=== PATIENT | male | born 1990 | race Caucasian/White ===

== ENCOUNTER 2019-12-15 13:00 | Outpatient (CLI) | payer OTHER, SELFPAY ==
--- NOTE | ~2019-12-15 | CT_ITS ---
EXAMINATION: CT brain wo con EXAM DATE: 12/15/2019 13:21 INDICATION: Ataxic paraplegia. TECHNIQUE: Spiral CT of the head was performed without contrast. Axial, coronal and sagittal images were reviewed. The dose-length product (DLP) for this examination was 529.67 mGy-cm. The exposure w as tailored according to patient size, and iterative reconstruction (ASIR) was used as additional dos e reduction technique. Comparison is made to prior examination from 08/15/2010. FINDINGS: There is no acute intraparenchymal hemorrhage. No evidence of intraparenchymal brain mass lesion. No evidence of acute infarction. There is no mass effect or midline shift. The ventricles are normal in size. There are no extra-axial collections. There are no acute calvarial fractures. T he orbits are unremarkable. Soft tissue is unremarkable. The visualized sinuses and mastoid air nilson ls are well aerated. IMPRESSION: 1. Unremarkable head CT examination. Reviewed, dictated and finalized at location A.
== END 2019-12-15 13:01 | disposition home or self-care (01) ==
LOC: ANHIMG 13:06
DX: E53.8 Deficiency of other specified B group vitamins (principal); G32.0 Subacute combined degeneration of spinal cord in diseases classified elsewhere
CPT/HCPCS: 70450

== ENCOUNTER 2020-04-09 13:28 | Outpatient (CLI) | payer OTHER, SELFPAY ==
--- NOTE | 2020-04-09 13:46 | ECHO_ITS ---
Patient Info Name: Scooter Michaels Age: 29 years : 1990 Gender: Male Ht: 70 in Wt: 230 lbs BSA: 2.30 m2 HR: 103 bpm BP: 140 / 97 mmHg Technical Quality: Good Exam Date: 04/09/2020 1:49 PM Exam Location: [facility] Patient Status: Outpatient Admit Date: 04/09/2020 Staff Ordering Physician: Barbara Garner NP Washing Machine Loader And Puller: Carlos Eduardo Dillon RDCS, RT Attending Provider: Barbara Garner NP Referring Physician: Patsy GU; Exam Type: CA echo doppler color flow Study Info Indications R00.2 - Palpitations Complete two-dimensional, color flow and Doppler transthoracic echocardiogram is performed. Summary 1. Left ventricular chamber dimension is mildly enlarged. 2. Left ventricular systolic function is normal, estimated at 55-60%. 3. The left ventricular diastolic function is normal. 4. E/e' 8 is minimally elevated. 5. Global longitudinal strain is abnormal at -11.6%. 6. No pulmonary hypertension, estimated pulmonary arterial systolic pressure is 5 mmHg. Left Ventricle E/e' 8 is minimally elevated. Global longitudinal strain is abnormal at -11.6%. Left ventricular chamber dimension is mildly enlarged. Left ventricular systolic function is normal, estimated at 55-60%. The left ventricular diastolic function is normal. Right Ventricle Right ventricular chamber dimension is normal. Right ventricular systolic function is normal. Left Atria Left atrial chamber dimension is normal. Right Atria Right atrial chamber dimension is normal. Aortic Valve The aortic valve is trileaflet. There is no aortic valve stenosis. There is no aortic valve regurgitation. Pulmonic Valve There is no pulmonic regurgitation. Mitral Valve There is no mitral valve stenosis. There is no mitral valve regurgitation. Tricuspid Valve There is no tricuspid valve regurgitation. No pulmonary hypertension, estimated pulmonary arterial systolic pressure is 5 mmHg. Pericardium/Pleural There is no pericardial effusion. Inferior Vena Cava Normal inferior vena cava with >50% collapse upon inspiration consistent with normal right atrial pressure, 5 mmHg. Aorta The aortic root size at the sinus of Valsalva is normal. Left Ventricular Outflow Tract Name Value Normal LVOT 2D LVOT Diameter 2.0 cm LVOT Doppler LVOT Peak Gradient 4 mmHg LVOT Mean Gradient 2 mmHg LVOT VTI 18 cm LVOT VTI/AV VTI Ratio 0.8 LVOT Stroke Volume 58 ml LVOT CO 5.9 l/min LVOT CI 2.5 l/min/m2 Mitral Valve Name Value Normal MV Doppler MV Decel Addison 408 cm/s2 MV PHT 52 ms MV Area (PHT)
--- NOTE | 2020-04-16 08:04 | WPDHOLTEREM ---
Holter/Event Monitor Holter/Event Monitor Date of procedure: 04/09/20 Procedure Type: 48 hour holter monitor Indications: Palpitations Conclusion: 1. 48 hour holter monitor on 04/09/20. 2. Underlying rhythm is sinus rhythm. HR range 63-150 bpm; average HR 101 bpm. 3. There are 6,169 premature supraventricular complexes and 205 supraventricular trigeminy. No supraventricular tachycardia. 4. No premature ventricular complex. No ventricular tachycardia. 5. No sinoatrial or atrioventricular blocks. No significant pauses greater than 2 seconds. 6. No symptoms available for correlation.
== END 2020-04-09 13:29 | disposition home or self-care (01) ==
PROVIDERS: PCP Internal Medicine; Visit Provider Nurse Practitioner
DX: R00.2 Palpitations (principal)
CPT/HCPCS: 93225; 93226; 93306

== ENCOUNTER 2021-06-11 15:28 | Emergency (ER) | payer OTHER, SELFPAY ==
[2021-06-11 15:40] VITALS: BP 119/82; PULSE 114; RESP 20; TEMP 36.7; O2SAT 98
--- NOTE | 2021-06-11 18:44 | PC.NURSE ---
1844- Called pt name in WR to be placed in room, no answer.
--- NOTE | 2021-06-11 19:03 | PC.NURSE ---
pt no longer in waiting room.
== END 2021-06-12 04:49 | disposition left against medical advice (07) ==
DX: R10.9 Unspecified abdominal pain (principal)
CPT/HCPCS: 99199

== ENCOUNTER 2021-06-12 15:06 | Emergency (ER) | payer OTHER, SELFPAY ==
[2021-06-12 15:11] VITALS: BP 128/96; PULSE 113; RESP 16; TEMP 36.4; O2SAT 100
--- NOTE | 2021-06-12 15:15 | PC.NURSE ---
pt refusing any and all blood work. stating I can't do it
--- NOTE | 2021-06-12 17:04 | PC.NURSE ---
pt informed rn he will leave because of long wait. pt states i feel fine . pt amb with steady gait out of ed.
== END 2021-06-12 17:04 | disposition left against medical advice (07) ==
DX: R10.32 Left lower quadrant pain (principal)
CPT/HCPCS: 99199

== ENCOUNTER 2023-04-15 02:51 | Emergency (ER) | payer OTHER, SELFPAY ==
[2023-04-15] VITALS (35 sets, daily range): BP systolic 116–153; BP diastolic 69–116; PULSE 107–139; RESP 15–27; TEMP 36.4; O2SAT 93–99
--- NOTE | ~2023-04-15 | CT_ITS ---
CT of the Abdomen and Pelvis: Indication: Small bowel obstruction Technique: 2.5 mm axial scans were obtained through the abdomen and pelvis following intravenous adm inistration of 100 cc of Omnipaque 350. Dose reduction technique was used on this scan by utilizing a utomated exposure control and iterative reconstruction technique. The dose-length product (DLP) was 1 368.09 mGy-cm. Findings: Scans through the lung bases are unremarkable. There is diffuse fatty infiltration of the liver. The spleen, pancreas, gallbladder, adrenals and kid neys are within normal limits. No evidence of aortic aneurysm. No lymphadenopathy. Questionable minimal wall thickening of multiple small bowel loops. No bowel obstruction. No abscess or free air. Images through the pelvis were performed. Urinary bladder unremarkable. Prostate gland and seminal ve sicles are unremarkable. No ascites. Impression: Questionable mild nonspecific enteritis. No bowel obstruction evident. Diffuse fatty infiltration of liver. Reviewed, dictated and finalized at [facility]. Impression: Questionable mild nonspecific enteritis. No bowel obstruction evident. Diffuse fatty infiltration of liver.
--- NOTE | 2023-04-15 03:45 | PC.NURSE ---
Pt has history of anxiety and presents very anxious. Pt states he is very fearful of needles/ blood work. Dr. Cordova at bedside and explained that his ER visit will require IV/ needles. Pt agreed to IM injection to reduce anxiety.
--- NOTE | 2023-04-15 03:49 | ED.GENADULT ---
HPI - General Adult General Chief complaint: Abdominal Pain <Moises Cordova MD - Last Filed: 04/20/23 02:11> Stated complaint: bloating x12 hours <Moises Cordova MD - Last Filed: 04/20/23 02:11> Time Seen by Provider: 04/15/23 03:33 <Moises Cordova MD - Last Filed: 04/20/23 02:11> History of Present Illness HPI narrative: This is a 32-year-old male history of anxiety presenting ED with chief complaint of abdominal pain. Patient says that he had diarrhea throughout the morning that ended up 11:00 p.m.. Since then he has had significant abdominal bloating. Is painful and tight. It is nonradiating 6 out 10 intensity and he says that the pain fluctuates. he has had this several times over the last 2 weeks. There are no exacerbating alleviating factors. He is still passing gas. He has not attempted to eat anything since lunch. He was recently put on MiraLax and fiber by his primary care physician <Moises Cordova MD - Last Filed: 04/20/23 02:11> Related Data Home medications: Home Medications Medication Instructions Recorded Confirmed vilazodone 40 mg tablet (Viibryd) 40 mg PO DAILY 12/25/21 04/01/23 venlafaxine 37.5 mg 37.5 mg PO DAILY 03/31/23 04/01/23 capsule,extended release 24 hr <Moises Cordova MD - Last Filed: 04/20/23 02:11> Allergies/adverse reactions: Allergies Allergy/AdvReac Type Severity Reaction Status Date / Time No Known Drug Allergies Allergy Mild Unknown Verified 04/01/23 10:51 <Moises Cordova MD - Last Filed: 04/20/23 02:11> [facility] Past Medical History Medical History: Medical History Anxiety Depression <Moises Cordova MD - Last Filed: 04/20/23 02:11> Family History Family History: Family History Father Anxiety Mother Diabetes mellitus <Moises Cordova MD - Last Filed: 04/20/23 02:11> Social History Social History: Social History Smoking status: Never smoker Tobacco type: e-cigarettes/vaping Alcohol intake: never <Moises Cordova MD - Last Filed: 04/20/23 02:11> Exam Narrative: APPEARANCE: No apparent distress. Head: atraumatic. EYES: EOMI, NOSE: Atraumatic NECK: Trachea midline RESPIRATORY: No increased rate of breathing, clear to auscultation CARDIOVASCULAR: RRR, ABDOMINAL: Abdomen is distended but tender with no guarding or rebound MUSCULOSKELETAl: No obvious deformities NEURO: Alert. Moving 4/4 extremities SKIN:: Warm, dry. Normal color PSYCHIATRIC: Normal affect <Moises Cordova MD - Last Filed: 04/20/23 02:11> Course Course Emergency Course: 0800: Signed out to oncoming physician pending anti emetics and PO challenge. <Moises Cordova MD - Last Filed: 04/20/23 02:11> 0800: Signed out to oncoming physician pending anti emetics and PO challenge. 1216: Patient with persistent tachycardia but taking p.o. Feels comfortable with discharge home. Discussed supportive therapy and he verbalized understanding. <Eliazar Baer MD - Last Filed: 04/15/23 12:17> Vital Signs Vital signs: Vital Signs Temperature 97.6 F 04/15/23 02:55 Pulse Rate 139 H 04/15/23 02:55 Respiratory Rate 20 04/15/23 02:55 Blood Pressure 149/88 H 04/15/23 02:55 Pulse Oximetry 98 04/15/23 02:55 Oxygen Delivery Room Air 04/15/23 02:55 Temperature 97.6 F 04/15/23 02:55 Pulse Rate 125 H 04/15/23 12:15 Respiratory Rate 24 H 04/15/23 12:15 Blood Pressure 134/104 H 04/15/23 12:15 Pulse Oximetry 97 04/15/23 12:15 Oxygen Delivery Room Air 04/15/23 02:55 <Moises Cordova MD - Last Filed: 04/20/23 02:11> Vital Signs Temperature 97.6 F 04/15/23 02:55 Pulse Rate 139 H 04/15/23 02:55 Respiratory Rate 20 04/15/23 02:55 Blood Pressure 149/88 H 04/15/23 02:55 Pulse Oximetry
[2023-04-15] MEDS: LORazepam INJ (*CRX) 2 MG/ML VIAL IM (04:18)
--- NOTE | 2023-04-15 04:18 | PC.NURSE ---
Pt given Ativan injection for anxiety related to needles. Pt began vomiting and shaking after IM injection. Pt back to baseline at this time and states he believes he got sick as a result of his anxiety.
[2023-04-15] MEDS: SODIUM CHLORIDE 0.9% IV 2,000 ML 999 ML IV CONT (05:10)
[2023-04-15] MEDS: FAMOTIDINE 20 MG/2 ML VIAL IV PUSH (05:12)
[2023-04-15 05:13] LABS: Appearance Urine Cloudy (Clear); Bacteria Urine None Seen /hpf; Bilirubin Urine Negative (Negative); Blood Urine Negative (Negative); Color Urine Dark Yellow (Yellow); Glucose Urine UA Negative (Negative); Ketones Urine 1+ mg/dL (Negative); Leukocyte Esterase Ur Negative LEU/UL (Negative); Nitrate Urine Negative (Negative); Non Pathogenic Casts 0-2; Protein Urine 1+ mg/dL (Negative); RBC Urine 0-2 /hpf (0-2); Specific Grav Ur 1.035 (1.001-1.035); Squamous Epithelial Cell Urine None seen /hpf (Few); WBC Urine 0-5 /hpf
[2023-04-15 05:16] LABS: Add Urine Microscopic? YES
[2023-04-15 05:21] LABS: Basophils Percent Auto 0.2 % (0.2-1.2); Eosinophils Percent Auto 0.1 % (0-4.4); Hematocrit 45.3 % (42.0-52.0); Hemoglobin 15.2 g/dL (14.0-18.0); Immature Granulocyte Absolute 0.02 K/mm3 (0.00-0.031); Immature Granulocyte Percent A 0.2 % (0-0.5); Lymphocytes Absolute Auto 0.93 K/mm3 (0.9-3.2); Lymphocytes Percent Auto 9.9 % (18.3-44.2); Mean Corpuscular HGB Conc 33.6 g/dl (32-36); Mean Corpuscular Volume 86.3 fl (80-100); Mean Platelet Volume 9.8 fl (7.4-10.4); Monocytes Absolute Auto 0.5 K/mm3 (0.1-0.6); Monocytes Percent Auto 5.6 % (2.6-8.5); Neutrophils Absolute Auto 7.9 K/mm3 (1.3-6.7); Platelet Count Result 185 k/mm3 (150-375); Red Blood Count 5.25 M/mm3 (4.6-6.20); Red Cell Distribution Width 13.6 % (11.5-14.5); White Blood Count 9.4 K/mm3 (4.5-10.0)
[2023-04-15 05:34] LABS: Lactic Acid Reflex 1.8 mmol/L (0.7-2.0)
[2023-04-15 05:44] LABS: Alanine Aminotransferase 93 U/L (6-50); Albumin Level 4.7 g/dL (3.5-5.1); Alkaline Phosphatase 51 U/L (38-126); Anion Gap 9 mmol/L (8-16); Aspartate Amino Transferase 63 U/L (17-59); Bilirubin,Total 1.2 mg/dL (0.2-1.3); Blood Urea Nitrogen 16 mg/dL (9-20); Calcium 9.2 mg/dL (8.4-10.2); Carbon Dioxide 26 mmol/L (22-30); Chloride 103 mmol/L (98-107); Estimated CRCL calculation 141 ml/min; Estimated Glomerular Filt Rate > 60; Glucose 133 mg/dL (65-110); Lipase 50 U/L (23-300); Potassium 4.1 mmol/L (3.4-5.0); Sodium 138 mmol/L (137-145)
[2023-04-15] MEDS: ONDANSETRON INJ 4 MG/2 ML VIAL IV PUSH (07:09)
--- NOTE | 2023-04-15 07:37 | PC.NURSE ---
Patient report received from FILI Crenshaw. All questions answered and care of patient assumed.
[2023-04-15] MEDS: METOCLOPRAMIDE HCL INJ 10 MG/2 ML VIAL IV PUSH (08:08)
[2023-04-15] MEDS: LACTATED RINGERS 1,000 ML 999 ML IV CONT (09:39)
== END 2023-04-15 12:42 | disposition home or self-care (01) ==
PROVIDERS: Emergency Provider Emergency Medicine; PCP Internal Medicine
DX: K52.9 Noninfective gastroenteritis and colitis, unspecified (principal); R14.0 Abdominal distension (gaseous); F41.9 Anxiety disorder, unspecified; F32.A Depression, unspecified; F17.290 Nicotine dependence, other tobacco product, uncomplicated
CPT/HCPCS: 36415; 74177; 80053; 81001; 83605; 83690; 85025; 96361; 96372; 96374; 96375; 99284; J2060; J2405; J2765; J7030; J7120; Q9967

== ENCOUNTER 2023-07-01 09:09 | Outpatient (CLI) | payer OTHER, SELFPAY ==
--- NOTE | ~2023-07-01 | US_ITS ---
Abdominal Sonogram: Real-time sonographic imaging of the abdomen was performed. Clinical History: Bloating Findings: The liver appears heterogeneous, with no evidence of mass lesion or bile duct dilatation. Main portal vein demonstrates normal direction of flow. It measures 21.7 cm in length. The spleen is normal in size without evidence of focal lesion. The gallbladder is well distended, and appears norm al with no evidence of gallstone or wall thickening. The common bile duct measures 3 mm. The visuali zed pancreas, aorta, and IVC are unremarkable. The right kidney measures 12.1 cm in length and the l eft kidney measures 12.0 cm. There is no hydronephrosis or renal calculus. Impression: Hepatomegaly with probable diffuse fatty infiltration. Reviewed, dictated and finalized at location . Impression: Hepatomegaly with probable diffuse fatty infiltration.
== END 2023-07-01 09:10 ==
LOC: GOSHIMG 09:09
PROVIDERS: PCP Nurse Practitioner; Visit Provider Nurse Practitioner
DX: R16.0 Hepatomegaly, not elsewhere classified (principal)
CPT/HCPCS: 76700